=== PATIENT | female | born 1990 | race Two or more races ===

== ENCOUNTER 2022-01-13 06:48 | Emergency (ER) | payer MEDICAID, OTHER ==
[~2022-01-13] VITALS: Ht 160 cm; Wt 88.9 kg
[2022-01-13 09:07] VITALS: BP 126/75
[2022-01-13] MEDS ORDERED: BACL10TA PO (09:08)
== END 2022-01-13 09:18 | disposition home or self-care (01) ==
LOC: ER 06:48
DX: S16.1XXA Strain of muscle, fascia and tendon at neck level, initial encounter (principal); Z32.02 Encounter for pregnancy test, result negative; V43.52XA Car driver injured in collision with other type car in traffic accident, initial encounter; Y93.89 Activity, other specified; Y92.89 Other specified places as the place of occurrence of the external cause; Y99.8 Other external cause status
CPT/HCPCS: 70450; 70486; 72125; 81025